=== PATIENT | female | born 1995 | race Caucasian/White ===

== ENCOUNTER 2019-02-01 07:27 | Outpatient (CLI) | payer OTHER ==
--- NOTE | 2019-02-01 09:28 | ULT ---
COMPLETE ABDOMINAL ULTRASOUND: HISTORY: Abdominal pain and diarrhea. FINDINGS: Normal liver echogenicity. No evidence of gallstones, wall thickening, edema or pericholecystic fluid . The common bile duct is 0.3 cm. The visualized pancreas, IVC, aorta and spleen are unremarkable. No abnormal fluid collection. No renal hydronephrosis. IMPRESSION: Unremarkable abdominal ultrasound. POS: [facility]
== END 2019-02-01 07:28 | disposition home or self-care (01) ==
LOC: SCSULT 07:27
PROVIDERS: ATTEND Internal Medicine Gastroenterology
DX: R10.9 Unspecified abdominal pain (principal); R19.7 Diarrhea, unspecified
CPT/HCPCS: 93975